=== PATIENT | male | born 1970 | race Caucasian/White ===

== ENCOUNTER 2016-09-02 02:17 | Emergency (ER) | payer OTHER ==
[~2016-09-02] VITALS: Ht 175.3 cm; Wt 81.7 kg
[~2016-09-02 02:17] MED LIST: FLEXERIL PO; HYDROXYZINE HCL25 M1 PO; NOHOMEMEDICATIONS; NORCO 5-325 TA1 EACH PO
[2016-09-02] MEDS ORDERED: TRAMADOL 50 MG50 MG PO (02:26)
[2016-09-02 02:53] LABS: HEMATOCRIT 43.4 % (42.0-52.0); HEMOGLOBIN 14.7 gm/dL (14.0-18.0); MCH 31.6 pg (26.0-34.0); MCHC 33.8 g/dL (28.0-37.0); MCV 93.4 fL (80.0-100.0); RBC 4.65 mil/uL (4.50-6.00); RDW 14.3 % (10.5-14.5); WBC 9.2 thou/uL (4.0-11.0)
[2016-09-02 03:01] LABS: CREATININE 1.1 mg/dL (0.6-1.3); POTASSIUM 3.8 mmol/L (3.5-5.1)
[2016-09-02] MEDS ORDERED: SENOKOT-S1 TA1 PO (05:56)
[2016-09-02] MEDS ORDERED: NAPROSYN500 MG PO (05:56)
[2016-09-02] MEDS ORDERED: NORCO 5-325 TA1 EACH PO (05:56)
[2016-09-02 06:35] VITALS: BP 114/74
== END 2016-09-02 06:51 | disposition home or self-care (01) ==
LOC: ER 02:17
PROVIDERS: Emergency Medicine
DX: S53.195A Other dislocation of left ulnohumeral joint, initial encounter (principal); S01.21XA Laceration without foreign body of nose, initial encounter; Z98.890 Other specified postprocedural states; Z85.528 Personal history of other malignant neoplasm of kidney; Z90.5 Acquired absence of kidney; F41.9 Anxiety disorder, unspecified; F17.210 Nicotine dependence, cigarettes, uncomplicated; F10.99 Alcohol use, unspecified with unspecified alcohol-induced disorder